=== PATIENT | female | born 1975 | race Caucasian/White ===

== ENCOUNTER 2018-02-20 15:05 | Emergency (ER) | payer BC ==
[2018-02-20 15:17] VITALS: BP 144/95
--- NOTE | 2018-02-20 15:50 | EDM.PDOC ---
ED HPI GENERAL MEDICAL PROBLEM - General Chief Complaint: General Stated Complaint: HEAD PAIN,MEMORY LOSS AND DRAINING ABSCESS Time Seen by Provider: 02/20/18 15:11 Source of Information: Reports: Patient, Family (Father), RN Notes Reviewed History Limitations: Reports: No Limitations - History of Present Illness INITIAL COMMENTS - FREE TEXT/NARRATIVE: The patient has 3 main complaints: 1. Recurrent chest boils. She states that she gets these often, and that they spontaneously drain when she takes hot baths. The current boils on her chest have been present for about one week, and all are draining. The patient states that she is not concerned about them. 2. Pain felt to her right mastoid process for the past week. No injury to the area, and no prior similar symptoms. The patient states that she was seen at the walk-in clinic either yesterday or the day before yesterday, but that no abnormalities were found, no diagnosis was given, and no treatment was recommended. The patient did not volunteer it, but she states that she may have had some decreased hearing to the right ear on and off. She denies any other symptoms, such as tinnitus, fever, swelling, etc. 3. Get fullness on and off for the past week. The patient states that she woke around 5:30 with an alarm, then found herself still in bed around 7:30. She states that she does not remember how she gets to work, or gets home from work, etc. It is noted that the patient is quite anxious, and that her oxygen saturation is 100% on room air. The patient has a previous diagnosis of anxiety, untreated. The patient's PCP is Dr. Escudero. Patient states that she has an appointment to see Dr. Morfin at 08:30 tomorrow morning. 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)) Neurological History: Reports: Headaches, Chronic, Seizure (petit mal) Psychiatric History: Reports: Addiction, Anxiety (untreated), Depression ( untreated) - Infectious Disease History Infectious Disease History: Reports: Chicken Pox - Past Surgical History HEENT Surgical History: Reports: Adenoidectomy, Tonsillectomy GI Surgical History: Reports: Appendectomy, Cholecystectomy (around 2012) Musculoskeletal Surgical History: Reports: Arthroscopic Knee (right) Social & Family History - Tobacco Use Smoking Status *Q: Current Every Day Smoker Years of Tobacco use: 23 Packs/Tins Daily: 0.5 Packs/Tins Daily Comment: Down from 1 ppd - Caffeine Use Caffeine Use: Reports: Coffee, Soda - Alcohol Use Alcohol Use History: Yes Alcohol Use Frequency: Socially - Recreational Drug Use Recreational Drug Use: No - Living Situation & Occupation Living situation: Reports: Single, Alone Occupation: Employed ([employer]) ED ROS GENERAL - Review of Systems Review Of Systems: ROS reveals no pertinent complaints other than HPI. ED EXAM, GENERAL - Physical Exam Exam: See Below Exam Limited By: No Limitations General Appearance: Alert, WD/WN, Anxious Eye Exam: Bilateral Eye: EOMI, Normal Inspection Ears: Normal External Exam, Normal Canal, Hearing Grossly Normal, Normal TMs, Other (No visible abnormality to the right mastoid process, such as swelling, erythema, ecchymosis, abrasion, or acne. The patient reports significant tenderness, even to just touching the skin. The mastoid process appears to be firm/bony, not soft spongy) Nose: Normal Inspection, Normal Mucosa, No Blood Throat/Mouth: Normal Inspection, Normal Lips, Normal Teeth, Normal Gums, Normal Oropharynx, Normal Voice, No Airway Compromise Head: Atraumatic, Normocephalic Neck: Normal Inspection, Supple, Non-Tender, Full Range of Motion. No: Lymphadenopathy (L), Lymphadenopathy (R) Respiratory/Chest: No Respiratory Distress, Lungs Clear, Normal Breath Sounds, No Accessory Muscle Use Cardiovascular: Normal Peripheral Pulses, Regular Rate, Rhythm, No Edema, No Gallop, No JVD, No Murmur, No Rub Peripheral Pulses: 4+: Radial (L), Radial (R) GI/Abdominal: Normal Bowel Sounds, Soft, Non-Tender, No Organomegaly, No Distention, No Abnormal Bruit, No Mass (Female) Exam: Deferred Rectal (Female) Exam: Deferred Back Exam: Normal Inspection, Full Range of Motion, NT Extremities: Normal Inspection, Normal Range of Motion, No Pedal Edema, Normal Capillary Refill Neurological: Alert, Oriented, No Motor/Sensory Deficits Psychiatric: Anxious Skin Exam: Warm, Dry, Normal Color, No Rash, Other (Several boils on the anterior chest, draining purulent fluid) Course - Vital Signs Last Recorded V/S: Last Vital Signs Temp 36.4 C 02/20/18 15:10 Pulse 69 02/20/18 15:10 Resp 18 02/20/18 15:10 BP 144/95 H 02/20/18 15:10 Pulse Ox 100 02/20/18 15:10 - Re-Assessments/Exams Free Text/Narrative Re-Assessment/Exam: 02/20/18 15:44 With respect to the patient's chest boils, the patient states that she gets these often, that all of them are spontaneously draining, and that she is not concerned about them. I recommended that she continue to apply compresses to them. With respect to the pain felt by the patient's right ear, I do not find any abnormality on physical examination. My suspicion for mastoiditis is very low, as there is no erythema to the area, the bone is not spongy, and her pain appears to fluctuate along with her anxiety. The patient has an appointment to see her PCP, Dr. Escudero, tomorrow morning at 08:30. Dr. Escudero could refer the patient to ENT, if he feels it is necessary. With respect to the patient's forgetfulness on and off for the past week, this is almost certainly related to her anxiety. I strongly recommended that the patient discuss treatment options for anxiety with Dr. Escudero when she sees him tomorrow. Departure - Departure Time of Disposition: 15:47 Disposition: Home, Self-Care 01 Condition: Fair Clinical Impression: Recurrent boils, Pain of right mastoid, Forgetfulness, Anxiety - Discharge Information *PRESCRIPTION DRUG MONITORING PROGRAM REVIEWED*: Not Applicable *COPY OF PRESCRIPTION DRUG MONITORING REPORT IN PATIENT JOCY: Not Applicable Referrals: Darin Escudero MD [Primary Care Provider] - Additional Instructions: You were seen in the emergency room for recurrent chest boils, pain felt behind her right ear, and forgetfulness. With respect to your chest boils, we recommend that you continue to soak in warm water or apply warm compresses to them. With respect to the pain felt behind her right ear, no physical abnormality was seen on examination. You do not appear to have an ear infection or mastoiditis. Follow-up with your PCP, Dr. Escudero at your previously scheduled appointment tomorrow morning at 8:30, for further evaluation. With respect to your forgetfulness, this is most likely due to your untreated anxiety. We recommend that you discuss treatment options for anxiety when you see Dr. Escudero tomorrow morning. If any other problems, please do not hesitate to return to the ER.
== END 2018-02-20 15:58 | disposition home or self-care (01) ==
LOC: JD.ED 15:05
DX: L02.223 Furuncle of chest wall (principal); H92.01 Otalgia, right ear; F03.90 Unspecified dementia, unspecified severity, without behavioral disturbance, psychotic disturbance, mood disturbance, and anxiety; F41.9 Anxiety disorder, unspecified; F17.210 Nicotine dependence, cigarettes, uncomplicated; Z79.899 Other long term (current) drug therapy
CPT/HCPCS: 99282

== ENCOUNTER 2019-12-04 12:16 | Emergency (ER) | payer BC, MEDICAID ==
[2019-12-04 12:30] VITALS: BP 135/77; PULSE 67
--- NOTE | 2019-12-04 13:46 | EDM.PDOC ---
ED HPI GENERAL MEDICAL PROBLEM - General Chief Complaint: Neurological Problem Stated Complaint: SEIZURES SENT FROM WALK IN CLINIC Time Seen by Provider: 12/04/19 12:32 Source of Information: Reports: Patient History Limitations: Reports: No Limitations - History of Present Illness INITIAL COMMENTS - FREE TEXT/NARRATIVE: Patient is a 44-year-old female presenting to the emergency department with complaints of increased recurrence of seizure activity. She has a known history of petit mall seizures for which she takes Topamax. She states that over the last few months she has had about 5 episodes where she will get pain in the left posterior portion of her head and neck and then go unconscious for period of time. She states after these episodes, she feels well. She does not feel overly fatigued or lethargic. These episodes have been witnessed by her parents. She presents with a video of one of her episodes taken by her mother. Patient's neurologist is Dr. Ian Yan in [place]. She states she had an appointment with him in October of this year. He is aware of these occurrences and stated that she may be taking too much of her Topamax. He recommend that she cut back from 50 mg twice daily to 50 mg once daily. Her last episode was last evening. She is concerned that she could have an aneurysm in her brain. She denies any head pain or neurologic deficits at this time. 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) Neurological History: Reports: Headaches, Chronic, Migraines, Seizure Psychiatric History: Reports: Addiction, Anxiety, Depression - Infectious Disease History Infectious Disease History: Reports: Chicken Pox - Past Surgical History HEENT Surgical History: Reports: Adenoidectomy, Tonsillectomy GI Surgical History: Reports: Appendectomy, Cholecystectomy Other Female Surgeries/Procedures: 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 Denies: Fever, Chills, Weakness HEENT: Reports: No Symptoms Respiratory: Reports: No Symptoms Cardiovascular: Reports: No Symptoms Endocrine: Reports: No Symptoms GI/Abdominal: Reports: No Symptoms : Reports: No Symptoms Musculoskeletal: Reports: No Symptoms Skin: Reports: No Symptoms Neurological: Reports: Seizure Psychiatric: Reports: No Symptoms Hematologic/Lymphatic: Reports: No Symptoms Immunologic: Reports: No Symptoms - Physical Exam Exam: See Below General Appearance: Alert, WD/WN, No Apparent Distress Neck: Normal Inspection, Supple, Non-Tender, Full Range of Motion Respiratory/Chest: No Respiratory Distress, Lungs Clear, Normal Breath Sounds, No Accessory Muscle Use, Chest Non-Tender Cardiovascular: Normal Peripheral Pulses, Regular Rate, Rhythm, No Edema, No Gallop, No JVD, No Murmur, No Rub Neuro Exam (Abbreviated): Alert, Oriented, CN II-XII Intact, Normal Cognition, Normal Gait, Normal Reflexes, No Motor/Sensory Deficits Back Exam: Normal Inspection, Full Range of Motion, NT Psychiatric: Normal Affect, Normal Mood Skin Exam: Warm, Dry, Intact, Normal Color, No Rash Course - Vital Signs Last Recorded V/S: Last Vital Signs Temp 97.6 F 12/04/19 12:27 Pulse 67 12/04/19 12:27 Resp 12 12/04/19 12:27 BP 135/77 12/04/19 12:27 Pulse Ox 100 12/04/19 12:27 - Orders/Labs/Meds Orders: Active Orders 24 hr Category Date Time Status Head wo Cont [CT] Stat Exams 12/04/19 12:59 Taken TOPIRAMATE (TOPAMAX), SERUM [REF] Routine Lab 12/04/19 13:52 Ordered Labs: Laboratory Tests 12/04/19 12/04/19 Range/Units 12:50 12:50 WBC 8.76 (3.98-10.04) K/mm3 RBC 4.63 (3.98-5.22) M/mm3 Hgb 14.4 (11.2-15.7) gm/dl Hct 43.6 (34.1-44.9) % MCV 94.2 (79.4-94.8) fl MCH 31.1 (25.6-32.2) pg MCHC 33.0 (32.2-35.5) g/dl RDW Std Deviation 44.7 (36.4-46.3) fL Plt Count 244 (182-369) K/mm3 MPV 9.9 (9.4-12.3) fl Neut % (Auto) 68.8 (34.0-71.1) % Lymph % (Auto) 24.0 (19.3-51.7) % [place] % (Auto) 4.5 L (4.7-12.5) % Eos % (Auto) 2.1 (0.7-5.8) Baso % (Auto) 0.5 (0.1-1.2) % Neut # (Auto) 6.04 (1.56-6.13) K/mm3 Lymph # (Auto) 2.10 (1.18-3.74) K/mm3 [place] # (Auto) 0.39 H (0.24-0.36) K/mm3 Eos # (Auto) 0.18 (0.04-0.36) K/mm3 Baso # (Auto) 0.04 (0.01-0.08) K/mm3 Sodium 140 (136-145) mEq/L Potassium 4.1 (3.5-5.1) mEq/L Chloride 106 (98-107) mEq/L Carbon Dioxide 23 (21-32) mEq/L Anion Gap 15.1 H (5-15) BUN 18 (7-18) mg/dL Creatinine 0.9 (0.55-1.02) mg/dL Est Cr Clr Drug Dosing 75.45 mL/min Estimated GFR (MDRD) > 60 (>60) mL/min BUN/Creatinine Ratio 20.0 H (14-18) Glucose 90 (74-106) mg/dL Calcium 8.2 L (8.5-10.1) mg/dL Magnesium 2.0 (1.8-2.4) mg/dl Total Bilirubin 0.3 (0.2-1.0) mg/dL AST 14 L (15-37) U/L ALT 21 (14-59) U/L Alkaline Phosphatase 52 (46-116) U/L C-Reactive Protein 0.2 (<1.0) mg/dL Total Protein 6.8 (6.4-8.2) g/dl Albumin 3.7 (3.4-5.0) g/dl Globulin 3.1 gm/dL Albumin/Globulin Ratio 1.2 (1-2) - Re-Assessments/Exams Free Text/Narrative Re-Assessment/Exam: Patient is a 44-year-old female presenting to the emergency department complaints of increased seizure activity with a known seizure disorder. Last episode was last evening. She is concerned that she could have aneurysm. She is having no current focal neurologic deficits and denies any head pain. My suspicion for aneurysm is quite low, however we will complete a CT scan of her head. I have also ordered a CBC, CMP, CRP, magnesium. I will try to get a hold of her neurologist, Dr. Sosa. 12/04/19 13:58 Patient's work-up was grossly unremarkable. Spoke with Dr. Sosa in [place]. He recommended no changes in her medications. He stated that she had personally requested to go down to once a day on her Topamax. She had sought a second opinion and that neurologist told her that she could take it once a day so she told Dr. Sosa that that is what she wants to do. He did not recommend that we increase her back to twice a day at this time. He will requested that I order a Topamax level and have her follow-up with her primary care physician at his nex t available visit. He does said she should not be driving. Discussed this with the patient and she is in agreement. Discharge instructions as documented. Departure - Departure Time of Disposition: 13:59 Disposition: Home, Self-Care 01 Condition: Good Clinical Impression: Seizure - Discharge Information *PRESCRIPTION DRUG MONITORING PROGRAM REVIEWED*: No *COPY OF PRESCRIPTION DRUG MONITORING REPORT IN PATIENT JOCY: No Instructions: Epilepsy, [id number] Referrals: Darin Escudero MD [Primary Care Provider] - Forms: ED Department Discharge, ED Return to Work/School Form Additional Instructions: You were seen in the emergency department today for increased frequency of seizu re activity. Your work-up included a CT scan of your head and blood work. Your work-up was found to be normal. There is no evidence of hemorrhage or masses within your brain. We did consult with Dr. Sosa. He recommend that you keep taking your current dose of Topamax. We have ordered a Topamax level to be completed. Results of this normally take 3 to 4 days. Recommend he follow-up with Dr. Morfin at his next available visit. He may request this Topamax level once results are available. You should not drive until advised that it is safe to do so by your primary care physician. Return to ER as needed. Sepsis Event Note (ED) - Evaluation Sepsis Screening Result: No Definite Risk - Focused Exam Vital Signs: Vital Signs Temp Pulse Resp BP Pulse Ox 12/04/19 12:27 97.6 F 67 12 135/77 100 - My Orders Last 24 Hours: My Active Orders 12/04/19 12:59 Head wo Cont [CT] Stat 12/04/19 13:52 TOPIRAMATE (TOPAMAX), SERUM [REF] Routine - Assessment/Plan Last 24 Hours: My Active Orders 12/04/19 12:59 Head wo Cont [CT] Stat 12/04/19 13:52 TOPIRAMATE (TOPAMAX), SERUM [REF] Routine
== END 2019-12-04 14:20 | disposition home or self-care (01) ==
LOC: JD.ED 12:16
DX: G40.909 Epilepsy, unspecified, not intractable, without status epilepticus (principal); F17.210 Nicotine dependence, cigarettes, uncomplicated; Z79.899 Other long term (current) drug therapy
CPT/HCPCS: 36415; 70450; 80053; 80201; 83735; 85025; 86140; 99283; 99284-25

== ENCOUNTER 2021-07-10 08:57 | Emergency (ER) | payer MEDICAID ==
[2021-07-10 09:08] VITALS: BP 155/93; PULSE 100
[2021-07-10] MEDS ORDERED: Acetaminophen 325 MG Tab PO ONE (09:31)
[2021-07-10] MEDS ORDERED: levETIRAcetam 1,000 MG in Sodium Chloride 0.9% 100 ML IV ONE (09:31)
[2021-07-10] MEDS ORDERED: Topiramate 100 MG Tab PO SCH ×2 (10:00→21:00)
[2021-07-10] MEDS ORDERED: Nitrofurantoin Monohydrate/Macrocrystalline 100 MG Cap PO ONE (11:19)
== END 2021-07-10 12:15 | disposition home or self-care (01) ==
LOC: JD.ED 08:57 → SUPCPDRO 08:57 → JD.ED 12:15
DX: R56.9 Unspecified convulsions (principal); N39.0 Urinary tract infection, site not specified; Z79.899 Other long term (current) drug therapy; Z86.16 Personal history of COVID-19; Z90.49 Acquired absence of other specified parts of digestive tract
CPT/HCPCS: 36415; 70450; 80053; 81001; 81025; 83605; 83735; 85025; 99285; A9270; J1953; 99284